=== PATIENT | male | born 1930 | race Caucasian/White ===

== ENCOUNTER 2016-09-07 07:37 | Emergency (ER) | payer OTHER ==
[2016-09-07 07:44] VITALS: BP 124/85; PULSE 80; TEMP 98.3
[2016-09-07] MEDS ORDERED: SODIUM PHOSPHATE/NA BIPHOS 133 ML ENEMA PR ONE (08:29)
[2016-09-07] MEDS ORDERED: LACTULOSE 20 GM/30 ML UDC (FOR ORAL USE ONLY) PO ONE (08:30)
[2016-09-07] MEDS ORDERED: LACTULOSE 20 GM/30 ML UDC (FOR ORAL USE ONLY) ONE (08:34)
--- NOTE | 2016-09-07 08:42 | PDOC ---
History of Present Illness - General Chief Complaint: Constipation Stated Complaint: CONSTIPATION Time Seen by Provider: 09/07/16 08:06 History Source: Patient, Family - History of Present Illness Timing/Duration: reports: constant Past History - Past Medical History Allergies/Adverse Reactions: Allergies Allergy/AdvReac Type Severity Reaction Status Date / Time No Known Drug Allergies Allergy Verified 09/07/16 07:44 Home Medications: Ambulatory Orders Aspirin [ASA -] 81 mg PO DAILY 12/04/13 Carbidopa/Levodopa [Carbidopa-Levo 25-100 Tab] 1 each PO TID 12/04/13 Naph,Mb-Db/K pH,Mbdb [PHOS-NaK PACKET -] 1 packet PO TID pow 10/06/15 Pantoprazole Sodium [Protonix -] 40 mg PO DAILY tablet.ec 10/06/15 Tamsulosin HCl [Flomax -] 0.4 mg PO DAILY@0830 cap.er.24h 10/06/15 Prednisone [Deltasone -] 40 mg PO DAILY #60 tablet 10/07/15 Docusate Sodium [Colace -] 100 mg PO DAILY #30 capsule 09/07/16 Anemia: No Asthma: No Cancer: No Cardiac Disorders: No CVA: No COPD: No CHF: No Dementia: No Diabetes: No GI Disorders: No Disorders: No HTN: No Hypercholesterolemia: No Liver Disease: No Seizures: No Thyroid Disease: No Other medical history: PARKINSONS - Surgical History Abdominal Surgery: Yes (HERNIA) - Immunization History Immunization Up to Date: No - Psycho/Social/Smoking Cessation Hx Anxiety: No Suicidal Ideation: No Smoking History: Former smoker Have you smoked in the past 12 months: No Information on smoking cessation initiated: No Hx Alcohol Use: Yes (Ocassional) Drug/Substance Use Hx: No Substance Use Type: Alcohol Hx Substance Use Treatment: No Review of Systems - Review of Systems Constitutional: No: Chills, Fever ABD/GI: Yes: Constipated. No: Abdominal Distended, Blood Streaked Bowels, Diarrhea, Nausea, Rectal Bleeding, Vomiting, Tarry Stools *Physical Exam - Vital Signs Last Vital Signs Temp Pulse Resp BP Pulse Ox 98.3 F 80 18 124/85 97 09/07/16 07:38 09/07/16 07:38 09/07/16 07:38 09/07/16 07:38 09/07/16 07:38 - Physical Exam General Appearance: Yes: Appropriately Dressed. No: Apparent Distress HEENT: positive: Normal Voice Neck: positive: Supple Respiratory/Chest: negative: Respiratory Distress Gastrointestinal/Abdominal: positive: Normal Bowel Sounds, Soft, Other (hard stool in vault). negative: Tender, Distended Extremity: positive: Normal Inspection Integumentary: positive: Dry, Warm Neurologic: positive: Fully Oriented, Alert, Normal Mood/Affect Medical Decision Making - Medical Decision Making 09/07/16 08:38 85-year-old male history of Parkinson's disease, GIB in 2016 thought to be due to to diverticular disease, status post transfusion, constipation, take over-the -counter meds as needed, here with complaint that he has not been able to move his bowels in 2 days despite taking dulcolax yesterday. Denies rectal pain or pressure, BRBPR, melena, abdominal pain, nausea or vomiting. Of note, colonoscopy normal in 2013. No recent change in diet, though admits to not eating enough vegetables at home. No new medications and not on narcotics See exam Recurrent constipation Stable in ED w/ benign abd and hard stool in vault, manually disimpacted -enema/lactulose and reassess 09/07/16 08:42 09/07/16 09:28 Pt reports having several large BMs in ED and feels comfortable going home in care of son. Rx for stool softener sent to pharmacy. Pt to f/u with PMD 09/07/16 09:52 09/07/16 09:53 *DC/Admit/Observation/Transfer Diagnosis at time of Disposition: Constipation Qualifiers: Constipation type: unspecified constipation type Qualified Code(s): K59.00 - Constipation, unspecified - Discharge Dispostion Disposition: HOME Condition at time of disposition: Improved - Prescriptions Prescriptions: Docusate Sodium [Colace -] 100 mg PO DAILY #30 capsule - Patient Instructions Printed Discharge Instructions: Constipation Additional Instructions: Maintain adequate hydration and eat more fruits and vegetables Take Colace as directed. Follow-up with your PMD Return to ER for worsening of symptoms
--- NOTE | 2016-09-07 09:34 | PDOC ---
*Physical Exam - Vital Signs Last Vital Signs Temp Pulse Resp BP Pulse Ox 98.3 F 80 18 124/85 97 09/07/16 07:38 09/07/16 07:38 09/07/16 07:38 09/07/16 07:38 09/07/16 07:38 ED Treatment Course - Medications Given in the ED: ED Medications Discontinued Medications Generic Name Dose Route Start Last Admin Trade Name Martha PRN Reason Stop Dose Admin Lactulose 20 gm 09/07/16 08:30 09/07/16 08:47 Cephulac (Oral Use) PO 09/07/16 08:31 20 gm ONCE ONE Administration Sodium Phosphate 133 ml 09/07/16 08:29 09/07/16 08:55 Fleet Adult Rectal Enema - [place] 09/07/16 08:30 133 ml ONCE ONE Administration Medical Decision Making - Medical Decision Making 09/07/16 09:32 Patient seen and evaluated with the nurse practitioner. I agree with the overall evaluation, assessment, and management with the following summary of visit: 85y/o M h/o constipation p/w no BM for 2d. no abd pain, no vomiting. Here noted to have fecal impaction, disimpacted and given enemas with subsequent several painless, nonbloody BMs. Feels well, abd benign, agrees with d/c plan, has bowel regimen at home, son at bedside. *DC/Admit/Observation/Transfer Diagnosis at time of Disposition: Constipation Qualifiers: Constipation type: unspecified constipation type Qualified Code(s): K59.00 - Constipation, unspecified - Discharge Dispostion Disposition: HOME - Prescriptions Prescriptions: Docusate Sodium [Colace -] 100 mg PO DAILY #30 capsule - Referrals Referrals: Caro Vasquez MD [Primary Care Provider] - - Patient Instructions Printed Discharge Instructions: Constipation Additional Instructions: Maintain adequate hydration and eat more fruits and vegetables Take Colace as directed. Follow-up with your PMD Return to ER for worsening of symptoms - Post Discharge Activity
== END 2016-09-07 10:05 | disposition home or self-care (01) ==
LOC: JER 07:37
DX: K59.00 Constipation, unspecified (principal); G20 Parkinson's disease
CPT/HCPCS: 99282-25